=== PATIENT | male | born 1995 | race Two or more races ===

== ENCOUNTER 2019-08-22 02:26 | Emergency (ER) | payer SELFPAY ==
[~2019-08-22] VITALS: Ht 180.3 cm; Wt 79.4 kg
--- NOTE | 2019-08-22 02:42 | NUR ---
ED Nurse Note: Pt ambulated to ED from home c/o R lower quad abdominal pain sharp consistent pain since thurs with nausea. VSS. ERMD at bedside
[2019-08-22 02:44] VITALS: BP 132/82
--- NOTE | 2019-08-22 02:49 | Emergency Room Report ---
History of Present Illness General Chief Complaint: Abdominal Pain Source: Patient Present Illness HPI This is a 24-year-old male with no past medical history. He presents with chief complaint of abdominal pain. Pain been ongoing for 3 to 4 days. It is constant. Localized to the right lower quadrant. Radiating down toward the groin area and testicular area. No dysuria frequency. Pain is nagging in nature. No fever chills. No nausea vomiting or diarrhea. No trauma. Worse with movement. Worse with palpation. No testicular pain or discharge. Allergies: Coded Allergies: No Known Allergies (Unverified , 08/22/19) COVID-19 Screening Contact w/high risk pt: No Recent Travel to affected area: No Experienced COVID-19 symptoms?: No Patient History Past Medical History: see triage record, old chart reviewed Past Surgical History: none Pertinent Family History: none Social History: Denies: smoking Immunizations: other Reviewed Nursing Documentation: PMH: Agreed; PSxH: Agreed Nursing Documentation-PMH Past Medical History: No Stated History Review of Systems Eye: Denies: eye pain, blurred vision ENT: Denies: ear pain, nose congestion, throat swelling Respiratory: Denies: cough, shortness of breath Cardiovascular: Denies: chest pain, palpitations Gastrointestinal: Reports: abdominal pain; Denies: diarrhea, nausea, vomiting Musculoskeletal: Denies: back pain, joint pain Skin: Denies: rash Neurological: Denies: headache, numbness Endocrine: Denies: increased thirst, increased urine Hematologic/Lymphatic: Denies: easy bruising All Other Systems: negative except mentioned in HPI Physical Exam Vital Signs Date Time Temp Pulse Resp B/P (MAP) Pulse Ox O2 Delivery O2 Flow Rate FiO2 08/22/19 02:31 97.3 65 18 132/82 (99) 98 Room Air Vitals normal Sp02 EP Interpretation: reviewed, normal General Appearance: well appearing, no apparent distress, alert Head: normocephalic, atraumatic Eyes: bilateral eye PERRL, bilateral eye EOMI ENT: hearing grossly normal, normal pharynx Neck: full range of motion, supple, no meningismus Respiratory: chest non-tender, lungs clear, normal breath sounds Cardiovascular #1: regular rate, rhythm, no murmur Gastrointestinal: normal bowel sounds, no mass, no organomegaly, no bruit, non- distended, tenderness - Mild tenderness over the right inguinal area. Genitourinary: other - Testicular tenderness. No hernia. Musculoskeletal: back normal, normal range of motion, gait/station normal Psychiatric: mood/affect normal Medical Decision Making Diagnostic Impression: Primary Impression: Groin pain Qualified Codes: R10.31 - Right lower quadrant pain ER Course Patient presents with abdominal pain. Pain is mostly in his groin area. I did not palpate any hernia. There is no evidence of any appendicitis, kidney stone or torsion. Could be a muscle or ligamental strain. Could also be a small sport hernia versus inguinal hernia. No evidence of any STD. Will discharge home. CT/MRI/US Diagnostic Results CT/MRI/US Diagnostic Results : Imaging Test Ordered: CT abdomen and pelvis Impression Read by radiologist. Negative. Last Vital Signs Date Time Temp Pulse Resp B/P (MAP) Pulse Ox O2 Delivery O2 Flow Rate FiO2 08/22/19 02:44 65 18 Room Air 08/22/19 02:44 97.3 132/82 98 Status: improved Disposition: HOME, SELF-CARE Condition: Stable Additional Instructions: Follow-up with your doctor in 7 days. Ibuprofen as needed for pain. Return if worse. Michael Adams MD Aug 22, 2019 02:49
--- NOTE | 2019-08-22 02:51 | NUR ---
ED Nurse Note: Pt to CT
[2019-08-22 03:02] LABS: APPEARANCE,URINE CLEAR; BILIRUBIN, URINE NEGATIVE (NEGATIVE); COLOR,URINE PALE YELLOW; GLUCOSE, URINE (UA) NEGATIVE (NEGATIVE); KETONES,URINE NEGATIVE (NEGATIVE); LEUKOCYTE ESTERASE ,URINE NEGATIVE (NEGATIVE); NITRITE,URINE NEGATIVE (NEGATIVE); PH,URINE 6 (4.5-8.0); PROTEIN,URINE NEGATIVE (NEGATIVE); UROBILINOGEN,URINE NORMAL MG/DL (0.0-1.0)
--- NOTE | 2019-08-22 03:28 | Diagnostic Imaging Report ---
EXAM: CT Abdomen and Pelvis Without Intravenous Contrast CLINICAL HISTORY: ABD PAIN TECHNIQUE: Axial computed tomography images of the abdomen and pelvis without intravenous contrast. CTDI is 4.2 mGy and DLP is 204.3 mGy-cm. One or more of the following dose reduction techniques were used: automated exposure control, adjustment of the mA and/or kV according to patient size, use of iterative reconstruction technique. COMPARISON: No relevant prior studies available. FINDINGS: Lung bases: Unremarkable. No mass. No consolidation. ABDOMEN: Liver: Unremarkable. Gallbladder and bile ducts: Unremarkable. No calcified stones. No ductal dilation. Pancreas: Unremarkable. No ductal dilation. Spleen: Unremarkable. No splenomegaly. Adrenals: Unremarkable. No mass. Kidneys and ureters: Unremarkable. No obstructing stones. No hydronephrosis. Stomach and bowel: Unremarkable. No obstruction. No mucosal thickening. PELVIS: Appendix: No findings to suggest acute appendicitis. Bladder: Unremarkable. No stones. Reproductive: Unremarkable as visualized. ABDOMEN and PELVIS: Intraperitoneal space: Unremarkable. No free air. No significant fluid collection. Bones/joints: No acute fracture. No dislocation. Soft tissues: Unremarkable. Vasculature: Unremarkable. No abdominal aortic aneurysm. Lymph nodes: Unremarkable. No enlarged lymph nodes. IMPRESSION: Unremarkable CT abdomen and pelvis. No acute inflammatory process noted
[2019-08-22 03:40] VITALS: BP 132/82
--- NOTE | 2019-08-22 03:40 | NUR ---
ER DISCHARGE NOTE: Patient is cleared to be discharged per ERMD, pt is aox4, on room air, with stable vital signs. pt was given dc and prescription instructions, pt was able to verbalize understanding, pt id band removed. pt is able to ambulate with steady gait. pt took all belongings.
== END 2019-08-22 03:40 | disposition home or self-care (01) ==
LOC: EMR 02:54
DX: R10.31 Right lower quadrant pain (principal)
CPT/HCPCS: 74176; 81003; 99284